=== PATIENT | female | born 1970 | race Caucasian/White ===

== ENCOUNTER 2022-04-05 17:15 | Emergency (ER) | payer BC, SELFPAY ==
[2022-04-05 17:25] VITALS: BP 133/70; PULSE 63; RESP 20; TEMP 36.8; O2SAT 100; BMI 18.6
--- NOTE | 2022-04-05 17:34 | XR_ITS ---
PROCEDURE INFORMATION: Exam: XR Right Ankle Exam date and time: 04/05/2022 5:33 PM Age: 51 years old Clinical indication: Injury or trauma; Fall; Blunt trauma; Right; Patient HX: Patient tripped and fell. Ankle pain. TECHNIQUE: Imaging protocol: XR Right ankle. Views: 3 or more views. COMPARISON: No relevant prior studies available. FINDINGS: Bones/joints: Osseous anatomic alignment is well preserved. No acutely displaced fracture or dislocation. Joint spaces are well preserved. Soft tissues: No significant soft tissue swelling. IMPRESSION: No acute findings.
--- NOTE | 2022-04-05 17:38 | HMH.EDUTC ---
[facility] Disposition Clinical Impression: Ankle sprain Qualifiers: Encounter type: initial encounter Involved ligament of ankle: other ligament Laterality: right Qualified Code(s): S93.491A - Sprain of other ligament of right ankle, initial encounter Disposition: Home, Self-Care Condition on Discharge: Good Instructions: DI for Ankle Sprain Additional Instructions: Weightbearing as tolerated rest Ice with cold pack for 20 minutes remove may repeat for comfort every hour Robert wrap for support and swelling no less in the shower. Be sure not too tight but not to lose either Elevate with ankle above your heart as much as possible to help reduce swelling and therefore pain Ibuprofen every 6 hours as needed for pain or inflammation. If needs something more you can take Tylenol every 4 hours as needed as long as her primary care has told he was okayed for you to take both. If improving any do not need to follow-up you can bring begin exercising 2-3 weeks after injury. Follow-up immediately if new or worsening symptoms or no noticeable improvement over the next 3-5 days. call ortho if no improvement Referrals: Maxwell Michele MD [Primary Care Provider] - Time of Disposition: 18:24 Medical Decision Making - Naman Inquiry Pt receiving controlled substance: No Vital Signs: 04/05/22 17:25 Temperature 98.2 F Temperature Source Oral Pulse Rate [Right Brachial] 63 Respiratory Rate 20 Blood Pressure [Right Arm] 133/70 Blood Pressure Mean [Right Arm] 91 Blood Pressure Source [Right Arm] Automatic Cuff Blood Pressure Position [Right Arm] Sitting 02 Sat by Pulse Oximetry 100 Oxygen Delivery Method Room Air Orders (Tests/Meds): ORDERS Category Date Time Status XR ankle RT min 3V Stat Exams 04/05/22 17:34 Taken [facility] HPI - General Chief complaint: Urgent Treatment Center Stated complaint: R ankle pain Time Seen by Provider: 04/05/22 17:39 Mode of Arrival: Ambulatory Source of Information: Patient Limitations: No Limitations Description of Symptoms (Recalled from Triage Doc. by RN): PATIENT STATES SHE WAS WALKING DOWN STEPS WITH HER DOG ON WEDNESDAY AND TWISTED HER RIGHT ANKLE. REPORTS SWELLING TO AREA AND PAIN WITH FLEXION HEENT Symptoms (Recalled from RN notes): No Resp Symptoms (Recalled from RN notes): No Skin Symptoms (Recalled from RN notes): No MS Symptoms (Recalled from RN notes): Yes Functional Status (Recalled from RN notes): WNL - History of Present Illness Provider Complaint: 51 yr old female presents for rt ankle pain. pt states she was walking her dog on wednesday and skipped a step and twisted ankle. pt states swelling and pain with movement - Related Data Allergies Allergy/AdvReac Type Severity Reaction Status Date / Time No Known Allergies Allergy Verified 04/05/22 17:39 - Worker's Comp Is this a Worker's Comp case?: No [facility] History - Hepatitis A Screen Attestation statement:: This patient has been screened for Hepatitis A risk factors. I have reviewed the patient's past medical history: Yes ROS Obtained: Yes Systems reviewed as appropriate & no additional complaints - Constitutional Constitutional: Reports system reviewed and no additional complaints, except as docu, Denies fatigue - Eyes Eyes: Reports system reviewed and no additional complaints, except as docu, Denies change in vision - ENT Ears, Nose, Mouth, and Throat: Reports system reviewed and no additional complaints, except as docu, Denies otalgia - Cardiovascular Cardiovascular: Reports system reviewed and no additional complaints, except as docu, Denies chest pain - Respiratory Respiratory: Reports system reviewed and no additional complaints, except as docu, Denies shortness of breath - Gastrointestinal Gastrointestingal: Reports: system reviewed and no additional complaints, except as docu. Denies: abdominal pain - Musculoskeletal Musculoskeletal: Reports system reviewed and no additional complaints, except as d
[2022-04-05 18:30] VITALS: BP 133/70; PULSE 63; RESP 20; TEMP 36.8; O2SAT 100
== END 2022-04-05 18:34 | disposition home or self-care (01) ==
LOC: ER 17:23 → UTC 17:28
PROVIDERS: Emergency Provider Nurse Practitioner Family; PCP Emergency Medicine
DX: S93.491A Sprain of other ligament of right ankle, initial encounter (principal); X50.1XXA Overexertion from prolonged static or awkward postures, initial encounter
CPT/HCPCS: 73610; 99213; G0463

== ENCOUNTER 2023-06-06 14:14 | Emergency (ER) | payer BC, SELFPAY ==
[2023-06-06 14:28] VITALS: BP 140/79; PULSE 85; RESP 20; TEMP 36.7; O2SAT 94; BMI 22.4
--- NOTE | 2023-06-06 14:36 | XR_ITS ---
PROCEDURE INFORMATION: Exam: XR Left Wrist Exam date and time: 06/06/2023 2:32 PM Age: 52 years old Clinical indication: Patient HX: Left wrist pain after moving furniture. TECHNIQUE: Imaging protocol: Radiologic exam of the left wrist. Views: 3 or more views. COMPARISON: No relevant prior studies available. FINDINGS: Bones/joints: There are mild degenerative changes 1st CMC joint with mild joint space narrowing and subchondral sclerosis. Small carpal bone cysts within the lunate likely developmental or degenerative in nature. Remaining osseous structures and joint surfaces are unremarkable. No fracture, deformity or malalignment. Soft tissues: Unremarkable. IMPRESSION: No acute bony abnormalities.
--- NOTE | 2023-06-06 14:47 | HMH.EDGENADL ---
Discharge Plan Disposition Patient Disposition: Home, Self-Care Condition: Good Chief Complaint: PAIN Referrals Follow up/Referrals: Jimbo López MD [Primary Care Provider] - See instructions Activity Restrictions/Add. Instructions Additional Instructions/Restrictions: At this time is felt you are safe to be discharged home. If new or worsening symptoms please do not hesitate to return the emergency department. If pain persist beyond 1 week please follow-up with your family doctor for continued evaluation. For pain please alternate Tylenol and ibuprofen. Wear your wrist splint as needed for comfort. Clinical Impressions Clinical Impression: Left wrist sprain Discharge ED Provider: Gaudencio Walker General Adult HPI General Chief complaint: PAIN Stated complaint: AO 06/03, left wrist pain Time Seen by Provider: 06/06/23 14:19 Mode of Arrival: Ambulatory Source of Information: Patient Limitations: No Limitations Description of Symptoms (Recalled from ER Triage Doc. by RN): pt to ed c/o left wrist pain. pt states she was moving furniture on and starting having pain. History of Present Illness HPI narrative: Patient is a 52-year-old female with no pertinent past medical history who presents emergency department for evaluation of left-sided wrist pain. History is obtained by patient at bedside. Patient was moving furniture and boxes when she awoke on Wednesday morning and since has had progressive left radial wrist pain. Denies other trauma or other affected joints. No other acute complaints at this time. Related Data Allergies Allergy/AdvReac Type Severity Reaction Status Date / Time No Known Allergies Allergy Verified 04/05/22 17:39 [facility] Disclaimer: The information contained in this section may have been updated after the patient was seen, as this information can be updated by other users. Social History Smoking Status: Never smoker alcohol intake: never current occupational status: employed Travel in the last 8 weeks: None ROS Obtained: Yes Systems reviewed as appropriate & no additional complaints except as documented Physical Exam General General appearance: alert and in no apparent distress Head Head exam: atraumatic and normocephalic Eye Eye exam: Present PERRL and EOMI ENT ENT exam: Present mucous membranes moist Neck Neck exam: Present normal inspection Chest Chest inspection: Present normal inspection and symmetric chest wall rise Respiratory Respiratory exam: Absent respiratory distress Cardiovascular Cardiovascular exam: Present regular rate and normal rhythm Abdominal Exam Abdominal exam: Present soft; Absent tenderness Extremities Exam Extremities exam: Present normal inspection and other (Mild tenderness over the left volar radial wrist. Limited flexion of the wrist secondary to pain. Limited adduction of the thumb secondary to pain. Otherwise normal range of motion and sensation in all joints of the left hand. Palpable radial pulse and distal capillary refill preserved) Neurological Exam Neurological exam: Present alert and oriented X3 Psychiatric Psychiatric exam: Present normal affect Skin Skin exam: Present warm and dry Medical Decision Making Naman Inquiry Pt receiving controlled substance: No Vital Signs: 06/06/23 14:28 Temperature 98.1 F Temperature Source Oral Pulse Rate [Left Radial] 85 Respiratory Rate 20 Blood Pressure [Right Arm] 140/79 Blood Pressure Mean [Right Arm] 99 02 Sat by Pulse Oximetry 94 L Oxygen Delivery Method Room Air Orders (Tests/Meds): ED MEDICATIONS Discontinued Medications Generic Name Dose Route Start Last Admin Trade Name Freq PRN Reason Stop Dose Admin Acetaminophen 500 mg 06/06/23 14:37 Acetaminophen 500mg Tab PO 06/06/23 14:38 ONCE ONE Ibuprofen 400 mg 06/06/23 14:37 Ibuprofen 400 Mg Tablet PO 06/06/23 14:38 ONCE ONE ORDERS Category Date Time Status
[2023-06-06 15:20] VITALS: BP 138/78; PULSE 79; RESP 20; TEMP 36.8; O2SAT 97
== END 2023-06-06 15:20 | disposition home or self-care (01) ==
PROVIDERS: Emergency Provider Emergency Medicine; PCP Family Medicine
DX: S63.92XA Sprain of unspecified part of left wrist and hand, initial encounter (principal); X50.0XXA Overexertion from strenuous movement or load, initial encounter
CPT/HCPCS: 73110; 99283